=== PATIENT | male | born 1965 | race Caucasian/White ===

== ENCOUNTER 2018-04-22 14:11 | Emergency (ER) | payer BC ==
[~2018-04-22] VITALS: Ht 167.6 cm; Wt 95.5 kg
[2018-04-22 14:14] VITALS: Ht 167.6 cm; Wt 95.5 kg
[2018-04-22] MEDS ORDERED: CLEOCIN HCL300 MG PO (14:26)
[2018-04-22] MEDS ORDERED: NORCO 7.5/325 T1 TA1 PO (14:52)
[2018-04-22 15:22] VITALS: BP 132/88
== END 2018-04-22 15:12 | disposition home or self-care (01) ==
LOC: D.ER 14:11
DX: L02.11 Cutaneous abscess of neck (principal); F17.200 Nicotine dependence, unspecified, uncomplicated

== ENCOUNTER 2020-10-13 09:25 | Emergency (ER) | payer MEDICAID ==
[~2020-10-13] VITALS: Ht 167.6 cm; Wt 74.1 kg
[~2020-10-13 09:25] MED LIST: CARAFATE1 G/10 ML PO; CIPRO500 MG PO; CLEOCIN HCL300 MG PO; COLACE100 MG PO; FLORAJEN3 CAPS460 MG PO; LEVOFLOXACIN500 MG PO; NICODERM CQ1 EAC3 TOPICAL; NORCO 7.5/325 T1 TA1 PO; PROTONIX40 MG PO; TYLENOL W/CODEI1 TAB PO
[2020-10-13 09:32] VITALS: BP 174/95; Ht 167.6 cm; Wt 74.1 kg
[2020-10-13 10:28] LABS: BASOPHILS 0.2 % (0-2); HEMATOCRIT 39.5 % (42.0-54.0); HEMOGLOBIN 12.6 g/dL (13.5-17.5); IMMATURE GRANULOCYTES 0.1 % (0-5); LYMPHOCYTE ABS# 2.02 10x3/uL (1.32-3.57); LYMPHOCYTES 23.7 % (15-50); MCH 29.2 pg (26.0-34.0); MCHC 31.9 g/dL (31.0-37.0); MCV 91.4 fL (80.0-100.0); MEAN PLATELET VOLUME 8.8 fL (7.4-10.4); NEUTROPHIL ABS# 5.78 10x3/uL (1.78-5.38); RBC 4.32 10x6/uL (4.20-6.10); WBC 8.5 10x3/uL (4.8-10.8)
[2020-10-13 10:29] LABS: CALC OSMOLALITY 275 mosm/kg (275-300); CALCIUM 9.5 mg/dL (8.5-10.1); CARBON DIOXIDE 32.9 mmol/L (21.0-32.0); CHLORIDE - SERUM 100 mmol/L (98-107); CREATININE - SERUM 0.6 mg/dL (0.6-1.3); PLATELET COUNT 312 10x3/uL (130-400); POTASSIUM - SERUM 3.4 mmol/L (3.5-5.1); SODIUM 138 mmol/L (136-145); UREA NITROGEN 9 mg/dL (7-18); eGFR NON AFRICAN AMERICAN > 90 mL/min (90-120)
[2020-10-13 10:30] LABS: GLUCOSE 119 mg/dL (74-106)
--- NOTE | 2020-10-13 10:35 | NUR ---
DR. FERRER NOTIFIED AND REVIEWED PT'S BEHAVIOR AND ASSESSMENT RESULTS. PT IS A LOW RISK PER DR. FERRER. DR. FERRER STATED TO GIVE RESOURCES TO PT AT TIME OF DISCHARGE. NO FURTHER ORDERS AT THIS TIME. RESOURCES REVIEWED WITH PT AND HE VERBALIZED UNDERSTANDING.
[2020-10-13 10:36] LABS: UDS - AMPHET POSITIVE QUAL (NEGATIVE); UDS - BARB NEGATIVE QUAL (NEGATIVE); UDS - BENZO NEGATIVE QUAL (NEGATIVE); UDS - COCAINE NEGATIVE QUAL (NEGATIVE); UDS - OPIATE NEGATIVE QUAL (NEGATIVE); UDS - PCP NEGATIVE QUAL (NEGATIVE); UDS - THC NEGATIVE QUAL (NEGATIVE)
[2020-10-13 10:43] LABS: ALKALINE PHOSPHATASE 95 U/L (30-120); ALT (SGPT) 23 U/L (10-68); AMYLASE - SERUM 49 U/L (25-115); LIPASE 101 U/L (73-393); MAGNESIUM - SERUM 2.1 mg/dL (1.8-2.4)
[2020-10-13 10:44] LABS: BILIRUBIN NEGATIVE (NEGATIVE); KETONE NEGATIVE (NEGATIVE); NITRITE NEGATIVE (NEGATIVE); UROBILINOGEN NORMAL mg/dL (< 2)
[2020-10-13 10:44] LABS: ALBUMIN 3.5 g/dL (3.4-5.0); BILIRUBIN - TOTAL 0.24 mg/dL (0.2-1.3); PROTEIN - SERUM 7.7 g/dL (6.4-8.2); TROPONIN-I < 0.017 ng/mL (0.000-0.060)
== END 2020-10-13 12:41 | disposition home or self-care (01) ==
LOC: D.ER 09:25
PROVIDERS: Family Medicine
DX: R10.84 Generalized abdominal pain (principal)

== ENCOUNTER 2020-11-24 09:35 | Day surgery (SDC) | payer BC ==
--- NOTE | 2020-11-23 16:28 | NUR ---
CONFIRMED APPOINTMENT
[2020-11-24] VITALS: BP 131/79
[~2020-11-24] VITALS: Ht 167.6 cm; Wt 72.7 kg
[2020-11-24 10:02] LABS: CALC OSMOLALITY 283 mosm/kg (275-300); CALCIUM 8.9 mg/dL (8.5-10.1); CARBON DIOXIDE 28.3 mmol/L (21.0-32.0); CHLORIDE - SERUM 107 mmol/L (98-107); CREATININE - SERUM 0.8 mg/dL (0.6-1.3); GLUCOSE 113 mg/dL (74-106); POTASSIUM - SERUM 4.3 mmol/L (3.5-5.1); SODIUM 142 mmol/L (136-145); UREA NITROGEN 12 mg/dL (7-18); eGFR NON AFRICAN AMERICAN > 90 mL/min (90-120)
[2020-11-24 10:11] LABS: APTT 27.3 SECONDS (22.8-39.4); INR 1.02 (0.85-1.17); PROTIME 12.4 SECONDS (11.6-15.0)
[2020-11-24 10:13] LABS: BASOPHILS 0.4 % (0-2); EOSINOPHILS 2.6 % (0-7); HEMOGLOBIN 13.1 g/dL (13.5-17.5); IMMATURE GRANULOCYTES 0.1 % (0-5); LYMPHOCYTE ABS# 2.17 10x3/uL (1.32-3.57); LYMPHOCYTES 28.2 % (15-50); MCH 28.7 pg (26.0-34.0); MCV 89.7 fL (80.0-100.0); MEAN PLATELET VOLUME 9.1 fL (7.4-10.4); MONOCYTES 8.4 % (2-11); NEUTROPHIL ABS# 4.64 10x3/uL (1.78-5.38); NEUTROPHILS 60.3 % (40-80); PLATELET COUNT 291 10x3/uL (130-400); RBC 4.57 10x6/uL (4.20-6.10); RDW 14.7 % (11.5-14.5); WBC 7.7 10x3/uL (4.8-10.8)
[2020-11-24 10:22] VITALS: BMI 25.8
--- NOTE | 2020-11-24 16:30 | NUR ---
REC'D PT FROM [facility] AT THIS TIME. PT RESTING WELL IN BED WITH EYES CLOSED EASILY TO AROUSED WHEN NAME IS CALLED. NO C/O NOTED OR VOICED AT THIS TIME. WILL CONTINUE TO OBSERVE FOR NEEDS. C/L IN REACH AT BEDSIDE.
[2020-11-24 17:03] VITALS: BP 151/85; Ht 167.6 cm; Wt 72.7 kg
[2020-11-24 20:00] VITALS: BP 172/104
[2020-11-25 04:00] VITALS: BP 151/89
[2020-11-25 05:43] LABS: BASOPHILS 0.3 % (0-2); EOSINOPHILS 2.6 % (0-7); HEMATOCRIT 39.4 % (42.0-54.0); HEMOGLOBIN 12.4 g/dL (13.5-17.5); IMMATURE GRANULOCYTES 0.1 % (0-5); LYMPHOCYTE ABS# 1.97 10x3/uL (1.32-3.57); LYMPHOCYTES 26.8 % (15-50); MCH 28.3 pg (26.0-34.0); MCHC 31.5 g/dL (31.0-37.0); MEAN PLATELET VOLUME 9.3 fL (7.4-10.4); MONOCYTES 6.8 % (2-11); NEUTROPHIL ABS# 4.65 10x3/uL (1.78-5.38); NEUTROPHILS 63.4 % (40-80); PLATELET COUNT 252 10x3/uL (130-400); RBC 4.38 10x6/uL (4.20-6.10); RDW 14.9 % (11.5-14.5); WBC 7.3 10x3/uL (4.8-10.8)
[2020-11-25 08:49] VITALS: BP 143/84
--- NOTE | 2020-11-25 09:53 | NUR ---
ASSESSMENT PER FLOW SHEET. PATIENT IS WITHOUT DISTRESS. MONITOR FOR NEEDS. CALL LIGHT IN REACH.
--- NOTE | 2020-11-25 10:55 | NUR ---
DISCHARGE INSTRUCTIONS,STATES UNDERSTANDING. IV DCD WITH CATH TIP INTACT.CALL TO IR,SPOKE WITH DON CONNER. PATIENT PAIN MEDS FOR HOME.SHE WILL CHECK WITH [facility]. CALL TO FAMILY .SHE WILL BE TO PICK HIM UP IN AN HOUR OR SO.
--- NOTE | 2020-11-25 11:02 | NUR ---
CALL BACK FROM [facility]. PATIENT WILL TAKE OTC TYLENOL AND IBUPROFEN FOR PAIN CONTROL AT HOME
[2020-11-25 12:19] VITALS: BP 145/77
--- NOTE | 2020-11-25 12:45 | NUR ---
left unit for transport home
== END 2020-11-25 12:45 | disposition home or self-care (01) ==
LOC: D.MS 09:35 → D.SP 09:35 → D.CT 12:00 → D.MS 13:43 → D.SP 11-25 12:45
PROVIDERS: ATTEND Radiology Diagnostic Radiology
DX: N28.89 Other specified disorders of kidney and ureter (principal); C64.2 Malignant neoplasm of left kidney, except renal pelvis